=== PATIENT | female | born 1985 ===

== ENCOUNTER 2025-01-27 19:27 | Observation (INO) | payer OTHER ==
[~2025-01-27] VITALS: Ht 165.1 cm; Wt 57.5 kg
[2025-01-27 20:16] LABS: BASOPHILS ABSOLUTE AUTO 0.07 K/mm3 (0.00-0.23); BASOPHILS PERCENT AUTO 1 % (0-2); EOSINOPHILS ABSOLUTE AUTO 0.04 K/mm3 (0.00-0.68); EOSINOPHILS PERCENT AUTO 1 % (0-6); Hematocrit 47.6 % (33.0-51.0); Hemoglobin 16.5 g/dL (11.5-16.0); IMMATURE GRAN ABSOLUTE AUTO 0.01 K/mm3 (0.00-0.10); IMMATURE GRAN PERCENT AUTO 0 % (0-1); LYMPHOCYTES ABSOLUTE AUTO 1.89 K/mm3 (0.84-5.20); LYMPHOCYTES PERCENT AUTO 27 % (21-46); MONOCYTES ABSOLUTE AUTO 1.04 K/mm3 (0.16-1.47); MONOCYTES PERCENT AUTO 15 % (4-13); Mean Corpuscular HGB Conc 34.7 g/dL (31.5-36.5); Mean Corpuscular Volume 98 fL (80-100); Mean Platelet Volume 10.8 fL (9.1-12.4); NEUTROPHILS ABSOLUTE AUTO 4.09 K/mm3 (1.96-9.15); NEUTROPHILS PERCENT AUTO 57 % (41-73); Platelet Count 200 K/mm3 (150-400); RDW Coefficient Variation 10.9 % (11.7-14.2); RDW Standard Deviation 39.8 fL (35.1-46.3); Red Blood Cell Count 4.86 M/mm3 (3.80-5.20); White Blood Cell Count 7.14 K/mm3 (4.00-11.30)
[2025-01-27 20:55] LABS: International Normalized Ratio 1.29; Prothrombin Time Results 13.5 Sec (9.7-11.5)
[2025-01-27] MEDS ORDERED: Ondansetron HCl 2 MG / ML 2ML Vial IV ONE (20:55)
[2025-01-27] MEDS ORDERED: HYDROmorphone HCl/Pf 1MG SYR IV PRN (20:55)
[2025-01-27] MEDS ORDERED: NS 1,000 ML IV SCH ×2 (20:55→23:50)
[2025-01-27 20:56] LABS: Alanine Aminotransfer (ALT/SGP 69 U/L (12-78); Albumin, Blood 4.1 g/dL (3.4-5.0); Albumin/Globulin Ratio 0.8 (0.8-1.8); Alk Phos 140 U/L (50-136); Anion Gap 18 mmol/L (3-11); Aspartate Aminotrans (AST/SGOT 153 U/L (12-37); Blood Urea Nitrogen 13 mg/dL (8-24); Bun/Creatinine Ratio 25.1 (12.0-20.0); CO2, Blood 20 mmol/L (21-32); Chloride, Blood 96 mmol/L (98-108); Creatinine, Blood 0.52 mg/dL (0.40-1.00); Globulin, Blood 5.4 g/dL (2.2-4.0); Glomerular Filtration Rate 120 (60-); Glucose, Blood 111 mg/dL (70-99); Sodium, Blood 130 mmol/L (136-145); Total Protein, Blood 9.5 g/dL (6.4-8.2)
[2025-01-27 21:05] LABS: Magnesium, Blood 1.9 mg/dL (1.6-2.4)
[2025-01-27 23:45] LABS: Source, Urine Clean Catch
[2025-01-27 23:48] LABS: Bilirubin, Urine Neg (Neg); Blood, Urine 1+ (Neg); Glucose Qualitative, Urine Neg (Neg); Ketones, Urine 3+ (Neg); Leukocyte Esterase, Urine 1+ (Neg); Nitrite, Urine Pos (Neg); Protein, Urine 2+ (Neg); Specific Gravity, Urine 1.005 (1.003-1.022); Urobilinogen, Urine 1+ (Normal)
[2025-01-27] MEDS ORDERED: Ondansetron HCl 2 MG / ML 2ML Vial IV PRN (23:50)
[2025-01-27] MEDS ORDERED: FentaNYL Citrate 50 MCG/ML 2 ML Injection IV PRN (23:50)
[2025-01-27 23:51] LABS: Appearance, Urine Hazy (Clear); Color, Urine Yellow (P-Yellow)
[2025-01-27] MEDS ORDERED: LORazepam 2 MG/ML 1ML Injection IV PRN (23:55)
[2025-01-27] MEDS ORDERED: ChlordiazePOXIDE 25 MG Cap PO PRN (23:55)
[2025-01-28] MEDS ORDERED: Thiamine HCl 100 MG in NS 50 ML IV SCH (00:08)
[2025-01-28] MEDS ORDERED: Enoxaparin 40 MG/0.4 ML SYR SC SCH (00:09)
[2025-01-28] MEDS ORDERED: Mag Sulfate 1 GM/D5% 100ML 100 ML IV STA (00:11)
[2025-01-28 00:16] LABS: CHOL/HDL RATIO 3.2; Cholesterol 189 mg/dL (50-200); HDL Cholesterol 60 mg/dL (>39); LDL/HDL RATIO 1.8; Low Density Lipoprotein Chol 105 mg/dL (0-110); Triglycerides 120 mg/dL (30-160); Very Low Density Lipoprot Chol 24 mg/dL (6-32)
[2025-01-28 00:25] LABS: Bacteria Few /hpf; Red Blood Cells, Urine 0-2 /hpf (0-2); Squamous Epithelial Cells Rare /hpf (Few); White Blood Cells, Urine 0-2 /hpf (0-5)
[2025-01-28 01:18] VITALS: BP 138/97
[2025-01-28] MEDS ORDERED: diphenhydrAMINE HCl 12.5 MG/5 ML 5MLUDC (Alcohol/Dye Free) PO PRN (01:25)
[2025-01-28] MEDS ORDERED: DiphenhydrAMINE HCL 25 MG Cap PO PRN (01:55)
[2025-01-28 04:35] VITALS: BP 139/97
[2025-01-28] MEDS ORDERED: FentaNYL Citrate 50 MCG/ML 2 ML Injection IV PRN (05:30)
[2025-01-28 05:34] LABS: BASOPHILS ABSOLUTE AUTO 0.05 K/mm3 (0.00-0.23); BASOPHILS PERCENT AUTO 1 % (0-2); EOSINOPHILS PERCENT AUTO 2 % (0-6); Hematocrit 38.4 % (33.0-51.0); Hemoglobin 13.5 g/dL (11.5-16.0); IMMATURE GRAN ABSOLUTE AUTO 0.05 K/mm3 (0.00-0.10); IMMATURE GRAN PERCENT AUTO 1 % (0-1); LYMPHOCYTES ABSOLUTE AUTO 1.39 K/mm3 (0.84-5.20); LYMPHOCYTES PERCENT AUTO 22 % (21-46); MONOCYTES ABSOLUTE AUTO 1.22 K/mm3 (0.16-1.47); MONOCYTES PERCENT AUTO 19 % (4-13); Mean Corpuscular HGB 34.8 pg (26.0-34.0); Mean Corpuscular HGB Conc 35.2 g/dL (31.5-36.5); Mean Corpuscular Volume 99 fL (80-100); Mean Platelet Volume 11.6 fL (9.1-12.4); NEUTROPHILS ABSOLUTE AUTO 3.66 K/mm3 (1.96-9.15); NEUTROPHILS PERCENT AUTO 57 % (41-73); Platelet Count 128 K/mm3 (150-400); RDW Coefficient Variation 11.2 % (11.7-14.2); RDW Standard Deviation 40.5 fL (35.1-46.3); Red Blood Cell Count 3.88 M/mm3 (3.80-5.20); White Blood Cell Count 6.47 K/mm3 (4.00-11.30)
[2025-01-28 05:55] LABS: Albumin, Blood 3.1 g/dL (3.4-5.0); Albumin/Globulin Ratio 0.8 (0.8-1.8); Bilirubin, Total 3.5 mg/dL (0.1-1.0); Bun/Creatinine Ratio 23.5 (12.0-20.0); Calcium, Blood 8.6 mg/dL (8.5-10.1); Creatinine, Blood 0.47 mg/dL (0.40-1.00); Globulin, Blood 4.1 g/dL (2.2-4.0); Potassium, Blood 3.9 mmol/L (3.5-5.5)
[2025-01-28 05:56] LABS: Total Protein, Blood 7.2 g/dL (6.4-8.2)
--- NOTE | 2025-01-28 06:41 | NUR ---
SHIFT SUMMARY PT ADMITTED FOR ACUTE PANCREATITIS, WITH PAST MED HX OF CIRROSIS OF LIVER, ETOH, BED IS IN LOW POSITION, CALL LIGHT WITHIN REACH, AND RAILS ARE TIMES 2.
[2025-01-28 07:16] VITALS: BP 130/94
[2025-01-28 11:45] VITALS: BP 119/93
[2025-01-28 15:29] VITALS: BP 114/85
[2025-01-28] MEDS ORDERED: Dextran/Hypromellose/Glycerin 15 DROP/ML BTL BOTHEYES PRN (16:10)
[2025-01-28] MEDS ORDERED: B-1100 M1 PO (17:36)
[2025-01-28] MEDS ORDERED: ONDA4ODT PO (17:36)
--- NOTE | 2025-01-28 17:37 | NUR ---
PT LEFT PRIOR TO RECIEVING DISCHARGE PAPERWORK. TELE BOX FOUND IN ROOM. PT LEFT PRIOR TO IV REMOVAL. MEDICATIONS WERE NOT FAXED TO PHARMACY D/T PT ABRUPTLY LEAVING. ATTEMPT TO CALL PT, PHONE SENT TO VOICEMAIL.
== END 2025-01-28 17:30 | disposition home or self-care (01) ==
LOC: ER 19:27 → MEDS 19:28 → ERHOLD 19:28 → ER 19:28 → MEDS 01-28 01:17 → ERHOLD 01-28 01:17 → MEDS 01-28 15:12 → ERHOLD 01-28 15:30 → ER 01-28 16:54 → MEDS 01-28 16:54 → ERHOLD 01-28 16:54 → MEDS 01-28 17:30
PROVIDERS: Student in an Organized Health Care Education/Training Program; ADMIT Internal Medicine
DX: K85.20 Alcohol induced acute pancreatitis without necrosis or infection (principal); E86.0 Dehydration; K76.0 Fatty (change of) liver, not elsewhere classified; R82.71 Bacteriuria; F10.10 Alcohol abuse, uncomplicated; K83.8 Other specified diseases of biliary tract
CPT/HCPCS: 36415; 74177; 74181; 76705; 80053; 80061; 81001; 82140; 83690; 83735; 83880; 84484; 85025; 85610; 85730; 86850; 86900; 86901; 87077; 87086; 87186; 93005; 93010; 96361; 96365; 96368; 96372; 96372-59; 96375; 96376; 99285-25; A9270; G0378; J1171; J1650; J2405; J3010; J3411; J3475; J7030; Q9967